=== PATIENT | male | born 1960 | race Caucasian/White ===

== ENCOUNTER 2018-10-10 03:02 | Emergency (ER) | payer SELFPAY ==
[2018-10-10] MEDS ORDERED: Sodium Chloride 0.9% 1,000 ML IV ONE (05:49)
[2018-10-10] MEDS ORDERED: Sodium Chloride 0.9% 10 ML Syringe FLUSH PRN (05:49)
[2018-10-10] MEDS ORDERED: Ketorolac 60 MG/2 ML SDV IVPUSH ONE (05:51)
--- NOTE | 2018-10-10 08:39 | US ---
Limited abdominal ultrasound: Multiple real-time images of the upper right abdomen were obtained. Comparison: No previous abdominal imaging is available. Findings: Liver is echogenic. Focal area within the right lobe of the liver appears hypoechoic most likely representing focal fatty sparing.. Multiple gallstones are seen within the gallbladder. Gallbladder not well distended which results in slightly thickened gallbladder wall. There appears to be a stone within the common bile duct. Common bile duct is also mildly dilated 1.1 cm. Right kidney shows no hydronephrosis or mass and has a length of 12.7 cm. Pancreas is incompletely seen. Visualized portions of the pancreas are unremarkable. Inferior vena cava is patent. Portal vein shows normal hepatopedal flow. Impression: 1. Fatty infiltration within the liver with focal fatty sparing seen within the anterior right lobe. 2. Multiple gallstones. Gallbladder not well distended which causes gallbladder wall thickening. 3. Mildly dilated CBD at 1.1 cm. There is evidence of a stone within the CBD. Diagnostic code #3
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
--- NOTE | 2018-10-10 11:31 | EDM.PDOC ---
ED HPI GENERAL MEDICAL PROBLEM - General Chief Complaint: Abdominal Pain Stated Complaint: SEVERE GALL BLADDER PAIN Time Seen by Provider: 10/10/18 03:22 Right Upper Abdomen Pain Score (Numeric/FACES): 7 - Related Data Allergies Allergy/AdvReac Type Severity Reaction Status Date / Time No Known Allergies Allergy Verified 10/10/18 05:39 Home Meds: Home Meds . [No Known Home Meds] 03/15/16 [History] Past Medical History HEENT History: Reports: None Cardiovascular History: Reports: None Respiratory History: Reports: None Gastrointestinal History: Reports: Cholelithiasis, GERD Other Gastrointestinal History: Umbilical hernia Genitourinary History: Reports: None Musculoskeletal History: Reports: None, Fracture Neurological History: Reports: None Psychiatric History: Reports: None Endocrine/Metabolic History: Reports: None Hematologic History: Reports: None Immunologic History: Reports: None Oncologic (Cancer) History: Reports: None Dermatologic History: Reports: None - Infectious Disease History Infectious Disease History: Reports: None - Past Surgical History Head Surgeries/Procedures: Reports: None HEENT Surgical History: Reports: None Cardiovascular Surgical History: Reports: None Respiratory Surgical History: Reports: None Male Surgical History: Reports: None Endocrine Surgical History: Reports: None Neurological Surgical History: Reports: None Musculoskeletal Surgical History: Reports: None Oncologic Surgical History: Reports: None Dermatological Surgical History: Reports: None Social & Family History - Family History Family Medical History: Noncontributory - Tobacco Use Smoking Status *Q: Former Smoker Used Tobacco, but Quit: Yes Month/Year Tobacco Last Used: 09/2018 - Recreational Drug Use Recreational Drug Use: No ED ROS GENERAL - Review of Systems Review Of Systems: See Below (See Dr. Hammond is note) ED EXAM, GI/ABD - Physical Exam Exam: See Below (See Dr. Hammond's note) Course - Vital Signs Last Recorded V/S: Last Vital Signs Temp 36.9 C 10/10/18 03:10 Pulse 79 10/10/18 03:10 Resp 18 10/10/18 03:10 BP 150/88 H 10/10/18 03:10 Pulse Ox 98 10/10/18 03:10 - Orders/Labs/Meds Orders: Active Orders 24 hr Category Date Time Status Sodium Chloride 0.9% [Saline Flush] Med 10/10/18 05:49 Active 10 ml FLUSH ASDIRECTED PRN Medication Orders Sodium Chloride (Saline Flush) 10 ml FLUSH ASDIRECTED PRN PRN Reason: Keep Vein Open Last Admin: 10/10/18 05:57 Dose: 10 ml Labs: Laboratory Tests 10/10/18 10/10/18 10/10/18 Range/Units 03:45 03:45 03:45 WBC 11.23 H (4.23-9.07) K/mm3 RBC 5.08 (4.63-6.08) M/mm3 Hgb 15.4 (13.7-17.5) gm/L Hct 45.5 (40.1-51.0) % MCV 89.6 (79.0-92.2) fl MCH 30.3 (25.7-32.2) pg MCHC 33.8 (32.2-35.5) g/dl RDW Std Deviation 49.7 H (35.1-43.9) fL Plt Count 251 (163-337) K/mm3 MPV 10.0 (9.4-12.3) fl Neut % (Auto) 76.1 H (34.0-67.9) % Lymph % (Auto) 13.0 L (21.8-53.1) % [place] % (Auto) 9.0 (5.3-12.2) % Eos % (Auto) 1.4 (0.8-7.0) Baso % (Auto) 0.2 (0.1-1.2) % Neut # (Auto) 8.55 H (1.78-5.38) K/mm3 Lymph # (Auto) 1.46 (1.32-3.57) K/mm3 [place] # (Auto) 1.01 H (0.30-0.82) K/mm3 Eos # (Auto) 0.16 (0.04-0.54) K/mm3 Baso # (Auto) 0.02 (0.01-0.08) K/mm3 Sodium 140 (136-145) mEq/L Potassium 4.0 (3.5-5.1) mEq/L Chloride 105 (98-107) mEq/L Carbon Dioxide 27 (21-32) mEq/L Anion Gap 12.0 (5-15) BUN 13 (7-18) mg/dL Creatinine 1.0 (0.7-1.3) mg/dL Est Cr Clr Drug Dosing 95.90 mL/min Estimated GFR (MDRD) > 60 (>60) mL/min BUN/Creatinine Ratio 13.0 L (14-18) Glucose 156 H (74-106) mg/dL Calcium 10.7 H (8.5-10.1) mg/dL Total Bilirubin 2.2 H (0.2-1.0) mg/dL AST 288 H (15-37) U/L ALT 322 H (16-63) U/L Alkaline Phosphatase 66 (46-116) U/L Total Protein 7.4 (6.4-8.2) g/dl Albumin 3.5 (3.4-5.0) g/dl Globulin 3.9 gm/dL Albumin/Globulin Ratio 0.9 L (1-2) Amylase 1172 H* (25-115) U/L Lipase (73-393) U/L 10/10/18 Range/Units 03:45 WBC (4.23-9.07) K/mm3 RBC (4.63-6.08) M/mm3 Hgb (13.7-17.5) gm/L Hct (40.1-51.0) % MCV (79.0-92.2) fl MCH (25.7-32.2) pg MCHC (32.2-35.5) g/dl RDW Std Deviation (35.1-43.9) fL Plt Count (163-337) K/mm3 MPV (9.4-12.3) fl Neut % (Auto) (34.0-67.9) % Lymph % (Auto) (21.8-53.1) % [place] % (Auto) (5.3-12.2) % Eos % (Auto) (0.8-7.0) Baso % (Auto) (0.1-1.2) % Neut # (Auto) (1.78-5.38) K/mm3 Lymph # (Auto) (1.32-3.57) K/mm3 [place] # (Auto) (0.30-0.82) K/mm3 Eos # (Auto) (0.04-0.54) K/mm3 Baso # (Auto) (0.01-0.08) K/mm3 Sodium (136-145) mEq/L Potassium (3.5-5.1) mEq/L Chloride (98-107) mEq/L Carbon Dioxide (21-32) mEq/L Anion Gap (5-15) BUN (7-18) mg/dL Creatinine (0.7-1.3) mg/dL Est Cr Clr Drug Dosing mL/min Estimated GFR (MDRD) (>60) mL/min BUN/Creatinine Ratio (14-18) Glucose (74-106) mg/dL Calcium (8.5-10.1) mg/dL Total Bilirubin (0.2-1.0) mg/dL AST (15-37) U/L ALT (16-63) U/L Alkaline Phosphatase (46-116) U/L Total Protein (6.4-8.2) g/dl Albumin (3.4-5.0) g/dl Globulin gm/dL Albumin/Globulin Ratio (1-2) Amylase (25-115) U/L Lipase 11855 H (73-393) U/L Meds: Medications Generic Name Dose Route Start Last Admin Trade Name Freq PRN Reason Stop Dose Admin Sodium Chloride 10 ml 10/10/18 05:49 10/10/18 05:57 Saline Flush FLUSH 10 ml ASDIRECTED PRN Administration Keep Vein Open Discontinued Medications Generic Name Dose Route Start Last Admin Trade Name Freq PRN Reason Stop Dose Admin Sodium Chloride 1,000 mls @ 250 mls/hr 10/10/18 05:49 10/10/18 05:56 Normal Saline IV 10/10/18 09:48 250 mls/hr ONETIME ONE Administration Ketorolac Tromethamine 30 mg 10/10/18 05:51 10/10/18 05:57 Toradol IVPUSH 10/10/18 05:52 30 mg ONETIME ONE Administration - Re-Assessments/Exams Free Text/Narrative Re-Assessment/Exam: 10/10/18 11:[address] Hammond at change of shift this morning. Refer to his note which is been dictated. Patient is cyanotic with a diagnosis of pancreatitis and needed to be admitted however finding the hospitalist was somewhat difficult. I did a vitamin the patient shortly after coming on shift he gives a history of having gallbladder problems in the past. Had sludge not thought to be operative seen on the CT several years ago. Today's evaluation shows an amylase 1100 range I did order a lipase which was 14,[place] [address]. No fevers or chills he has a history of having episodes like this but this one is by far the worst he's ever had. His pain at this point is doing fairly well he received a single dose of Toradol last shift. We did get gallbladder ultrasound that showed a gallbladder that is not fully distended and looks a little thickened perhaps because of this he got multiple gallstones present he' s got a common bile duct is enlarged at 1.1 cm and he has a fatty liver. I did discuss the situation with Dr. Lau bobbin winder tender at [facility] in [place] who agrees the patient needs an MRCP but he is not able to do an ERCP some cannot take the patient [facility] in [place] is on diversion I discussed the case with Dr. Ravi hospitalist at [facility] in [place] who is willing to take the patient the patient does refuse to fly however and we do not have ground transport capabilities to [place]. He will drive himself which is not ideal but I have no other options at this point and we are waiting for bed assignment in [place]. Departure - Departure Time of Disposition: 11:56 Disposition: DC/Tfer to Acute Hospital 02 Clinical Impression: Gallstone pancreatitis - Discharge Information Referrals: PCP,None [Primary Care Provider] - Forms: ED Department Discharge Additional Instructions: Go straight to the [facility] in [place]. Do not eat or drink anything in route it would be ideal to have somebody go with you.
[2018-10-10 13:31] VITALS: BP 125/63
== END 2018-10-10 12:55 ==
LOC: JD.ED 03:02
DX: K85.10 Biliary acute pancreatitis without necrosis or infection (principal); Z87.891 Personal history of nicotine dependence
CPT/HCPCS: 36415; 76705; 80053; 82150; 83690; 85025; 96361; 96374; 99285; J1885; J7040; 99284